=== PATIENT | female | born 1995 | race Caucasian/White ===

== ENCOUNTER 2017-09-24 22:17 | Outpatient (CLI) | payer BC, MEDICAID ==
[2017-09-25] MEDS: ACETAMINOPHEN 500 MG TAB PO (00:43)
[2017-09-25] MEDS: GUAIFENESIN 20 MG/ML 5ML CUP PO (00:44)
[2017-09-25 01:26] LABS: ADD UMIC YES; UR ASCORBIC ACID NEGATIVE (NEGATIVE); UR BACTERIA FEW /HPF (NONE SEEN); UR BILIRUBIN (Dip) NEGATIVE (NEGATIVE); UR BLOOD (Dip) NEGATIVE (NEGATIVE); UR CALCIUM OXALATE CRYSTAL MODERATE /HPF (NONE SEEN); UR CLARITY SLIGHTLY CLOUDY (CLEAR); UR COLOR YELLOW (YELLOW); UR GLUCOSE (Dip) 1+ mg/dL (NEGATIVE); UR KETONES (Dip) TRACE mg/dL (NEGATIVE); UR LEUKOCYTE ESTERASE (Dip) NEGATIVE Leu/ul (NEGATIVE); UR MUCUS FEW /HPF (NONE SEEN); UR NITRITE (Dip) NEGATIVE (NEGATIVE); UR RBC 12 /HPF (0-5); UR SPECIFIC GRAVITY (Dip) 1.031 (1.003-1.030); UR SQUAMOUS EPITHELIAL CELL FEW /HPF (FEW); UR TOTAL PROTEIN (Dip) 1+ mg/dl (NEGATIVE); UR UROBILINOGEN (Dip) NEGATIVE (NEGATIVE); UR WBC 0 /HPF (0-5)
== END 2017-09-25 01:50 | disposition home or self-care (01) ==
LOC: OBT 22:17 → L-D 22:20
DX: O26.893 Other specified pregnancy related conditions, third trimester (principal); R10.2 Pelvic and perineal pain; Z3A.35 35 weeks gestation of pregnancy
CPT/HCPCS: 76818; 81001

== ENCOUNTER 2017-10-16 00:54 | Inpatient (IN) | payer BC ==
[2017-10-16] MEDS ORDERED: METHYLERGONOVINE 0.2 MG INJ IM (04:30)
[2017-10-16] MEDS ORDERED: LIDOCAINE 1% (MPF) 30 ML INJ INJ (04:30)
[2017-10-16] MEDS ORDERED: IBUPROFEN 600 MG TAB PO (04:30)
[2017-10-16] MEDS ORDERED: CARBOPROST 250 MCG INJ IM (04:30)
[2017-10-16] MEDS ORDERED: OXYTOCIN 30 UNITS/LR 500 ML IV (04:30)
[2017-10-16] MEDS ORDERED: MISOPROSTOL 200 MCG TAB PR (04:30)
[2017-10-16 06:46] LABS: ADD MAN DIFF? NO
[2017-10-16 06:50] LABS: WHITE BLOOD COUNT 12.7 10^3/ul (4.8-10.8)
[2017-10-16 06:50] LABS: BASOPHIL # 0.1 10^3/ul (0.0-0.1); BASOPHILS % 0.6 % (0.0-2.0); EOSINOPHILS # 0.2 10^3/ul (0.0-0.5); EOSINOPHILS % 1.2 % (0.0-7.0); HEMATOCRIT 33.6 % (37.0-47.0); LYMPHOCYTES # 2.3 10^3/ul (0.8-2.9); LYMPHOCYTES % 17.9 % (18.0-55.0); MEAN CORPUSCULAR HGB CONC 32.7 g/dl (32.0-37.0); MEAN CORPUSCULAR VOLUME 82.4 fl (72.0-104.0); MEAN PLATELET VOLUME 11.6 fl (7.4-10.4); MONOCYTE # 0.8 10^3/ul (0.3-0.9); MONOCYTES % 6.4 % (0.0-13.0); NEUTROPHIL # 8.9 10^3/ul (1.6-7.5); NEUTROPHILS % 70.7 % (30.0-74.0); PLATELET COUNT 324 10^3/UL (140-415); RED BLOOD COUNT 4.08 10^6/ul (4.20-5.40); RED CELL DISTRIBUTION WIDTH 14.5 % (11.5-14.5)
[2017-10-16 07:07] LABS: INR 0.85; PARTIAL THROMBOPLASTIN TIME 25.3 Sec (25.0-35.0); PROTIME 11.7 Sec (11.9-14.9); PT RATIO 0.9
[2017-10-16 07:38] LABS: HEPATITIS B SURFACE ANTIGEN NEGATIVE (NEGATIVE)
[2017-10-16] MEDS: DINOPROSTONE 10 MG VAG SUPP VAG (08:22)
[2017-10-16] MEDS: LACTATED RINGER'S 1,000 ML IV ×3 (10:24→19:02)
[2017-10-16] MEDS: AMPICILLIN 2 GM/NS (PMX) 100 ML IV (10:24)
[2017-10-16] MEDS: AMPICILLIN 1 GM/NS (PMX) 50 ML IV ×3 (15:22→23:20)
[2017-10-16 22:02] LABS: RAPID PLASMA REAGIN NONREACTIVE (NR)
[2017-10-16] MEDS: OXYTOCIN 30 UNITS/LR 500 ML IV (22:28)
[2017-10-17] MEDS: AMPICILLIN 1 GM/NS (PMX) 50 ML IV ×8 (02:55→23:45)
[2017-10-17] MEDS: LACTATED RINGER'S 1,000 ML IV ×4 (09:17→22:47)
[2017-10-17] MEDS: BUTORPHANOL 2 MG INJ IV (14:50)
[2017-10-17] MEDS ORDERED: FENTAnyl 2MCG/ML-ROPIV 0.2% 100 ML (22:50)
[2017-10-17] MEDS ORDERED: ONDANSETRON 4 MG INJ IV (23:00)
[2017-10-17] MEDS ORDERED: DIPHENHYDRAMINE 50 MG INJ IV (23:00)
[2017-10-17] MEDS ORDERED: NALOXONE (0.4 MG/ML) INJ IV (23:00)
[2017-10-18] MEDS: AMPICILLIN 1 GM/NS (PMX) 50 ML IV ×2 (04:11→08:30)
[2017-10-18] MEDS: FENTAnyl 2MCG/ML-ROPIV 0.2% 100 ML BAG EPI (05:25)
[2017-10-18] MEDS: LACTATED RINGER'S 1,000 ML IV (05:26)
[2017-10-18] MEDS: ACETAMINOPHEN 325 MG TAB PO (05:56)
[2017-10-18] MEDS: OXYTOCIN 30 UNITS/LR 500 ML IV ×3 (08:14→10:38)
[2017-10-18] MEDS ORDERED: LACTATED RINGER'S 1,000 ML IV* (10:10)
[2017-10-18] MEDS ORDERED: ACETAMINOPHEN 325 MG TAB PO (10:30)
[2017-10-18] MEDS ORDERED: MAGNESIUM HYDROXIDE 30ML CUP PO (10:30)
[2017-10-18] MEDS ORDERED: WITCH HAZEL/GLYCERIN PAD PR (10:30)
[2017-10-18] MEDS ORDERED: DIPHENHYDRAMINE 25 MG CAP PO (10:30)
[2017-10-18] MEDS ORDERED: ZOLPIDEM 5 MG TAB PO (10:30)
[2017-10-18] MEDS ORDERED: SENNA/DOCUSATE NA (8.6MG/50MG) TAB PO (10:30)
[2017-10-18] MEDS ORDERED: MISOPROSTOL 200 MCG TAB PR (10:30)
[2017-10-18] MEDS ORDERED: CARBOPROST 250 MCG INJ IM (10:30)
[2017-10-18] MEDS ORDERED: OXYTOCIN 30 UNITS/LR 500 ML IV (10:30)
[2017-10-18] MEDS ORDERED: METHYLERGONOVINE 0.2 MG INJ IM (10:30)
[2017-10-18] MEDS: IBUPROFEN 800 MG TAB PO ×2 (11:37→17:49)
[2017-10-18] MEDS: BENZOCAINE 20% 56 ML SPRAY TOP (11:39)
[2017-10-18] MEDS: LANOLIN 7 GM TUBE TOP (11:40)
[2017-10-19] MEDS: IBUPROFEN 800 MG TAB PO ×5 (00:34→23:37)
[2017-10-19 08:24] LABS: ADD MAN DIFF? NO
[2017-10-19 08:37] LABS: WHITE BLOOD COUNT 10.2 10^3/ul (4.8-10.8)
[2017-10-19 08:37] LABS: BASOPHILS % 0.4 % (0.0-2.0); EOSINOPHILS # 0.2 10^3/ul (0.0-0.5); EOSINOPHILS % 2.1 % (0.0-7.0); HEMATOCRIT 26.8 % (37.0-47.0); HEMOGLOBIN 8.4 g/dl (12.0-16.0); LYMPHOCYTES % 19.8 % (18.0-55.0); MEAN CORPUSCULAR HGB CONC 31.3 g/dl (32.0-37.0); MEAN PLATELET VOLUME 11.3 fl (7.4-10.4); MONOCYTES % 9.3 % (0.0-13.0); NEUTROPHIL # 6.7 10^3/ul (1.6-7.5); NEUTROPHILS % 65.6 % (30.0-74.0); PLATELET COUNT 231 10^3/UL (140-415); RED BLOOD COUNT 3.23 10^6/ul (4.20-5.40); RED CELL DISTRIBUTION WIDTH 15.1 % (11.5-14.5)
[2017-10-19] MEDS: INFLUENZA VIRUS VACCINE 0.5 ML SYG IM* (11:33)
[2017-10-20] MEDS: IBUPROFEN 800 MG TAB PO ×3 (05:38→17:51)
[2017-10-20] MEDS: VARICELLA VACCINE LIVE/PF 1,350 UNIT/0.5 ML ML SC* (09:00)
[2017-10-20] MEDS: DIPHTH/TET/ACEL PERTUSS (ADULT) 0.5 ML VIAL IM* (09:00)
[2017-10-20] MEDS: MEASLES,MUMPS,RUBELLA VACCINE INJ SC* (09:00)
[2017-10-20] MEDS: HYDROCODONE/APAP (5/325) TAB PO (18:39)
== END 2017-10-20 18:30 | disposition home or self-care (01) | DRG 775 ==
LOC: OBT 00:54 → PP1 10-19 09:54 → L-D 00:54 → PP1 10-18 10:35 → OBT 04:09 → L-D 04:11
PROVIDERS: Obstetrics & Gynecology
PROC: 10E0XZZ Delivery of Products of Conception, External Approach (ICD-10-PCS; principal; 2017-10-18)
DX: O80 Encounter for full-term uncomplicated delivery (principal); Z37.0 Single live birth; Z3A.39 39 weeks gestation of pregnancy
CPT/HCPCS: 62319; 76815; 85025; 85610; 85730; 86592; 86900; 86901; 87070; 87075; 87340; 88307; 90686; 90715; 90716; 99464